=== PATIENT | female | born 1995 | race African-American/Black ===

== ENCOUNTER 2017-06-03 20:36 | Inpatient (IN) | payer OTHER ==
[2017-06-03 22:11] LABS: Absolute Lymphocytes (CBC) 0.9 K/uL (0.7-4.9); Absolute Monocytes 0.3 K/uL (0.1-1.3); Absolute Neutrophil 6.4 K/uL (1.8-8.0); Basophils % 0.4 % (0-1.3); Eosinophils % 0.4 % (0-4.4); Hematocrit 41.1 % (36.0-45.0); Lymphocytes % 11.4 % (15.3-44.8); MCH 28.4 pg (27.0-35.0); MCV 84.5 fL (80-100); MPV 9.3 fL (7.6-11.3); Monocytes % 4.3 % (3.3-12.3); RBC Red Blood Cell Count 4.86 M/uL (3.86-4.86)
[2017-06-03] MEDS ORDERED: MORPHINE 10 MG/ML VIAL ONE (22:12)
[2017-06-03] MEDS ORDERED: ONDANSETRON 4 MG/2 ML VIAL ONE (22:13)
[2017-06-03] MEDS ORDERED: NA CHLORIDE 0.9% 1,000 ML ONE (22:13)
[2017-06-03 22:21] LABS: Bicarbonate 23 mEq/L (21-31); Glucose Level 113 mg/dL (65-120); Lipase 25 U/L (22-51); Potassium 3.4 mEq/L (3.6-5.0); Sodium Level 139 mEq/L (135-145)
[2017-06-03 22:28] LABS: Urine Blood TRACE (NEG); Urine Glucose NEGATIVE (NEG); Urine Protein 1+ (NEG); Urine Specific Gravity 1.025 (1.005-1.030)
[2017-06-03 22:32] LABS: ALT/SGPT 21 IU/L (10-60); AST/SGOT 29 IU/L (10-42); Albumin 4.5 g/dL (3.2-5.5); Alkaline Phosphatase 79 IU/L (42-121); BUN Blood Urea Nitrogen 14 mg/dL (6-20); Bilirubin Direct < 0.1 mg/dL (0-0.2); Bilirubin Total 0.5 mg/dL (0.3-1.2); Protein, Total 8.2 g/dL (6.0-8.3)
[2017-06-03 23:07] LABS: Urine Specific Gravity 1.025 (1.005-1.030)
--- NOTE | 2017-06-04 00:08 | EDPHYS ---
Physician Documentation [facility] Name: Winsome Navarro Age: 21 yrs Sex: Female : 1995 Arrival Date: 06/03/2017 Time: 20:37 Bed 23 Private MD: ED Physician Sukhwinder Hopper HPI: 06/03 22:04 This 21 yrs old Black Female presents to ER via Wheelchair with complaints of Lower Abd jr8 Pain-L. 22:04 The patient presents with abdominal pain in the left lower quadrant. Onset: The jr8 symptoms/episode began/occurred acutely, today. The symptoms do not radiate. Associated signs and symptoms: Pertinent positives: nausea and vomiting. The symptoms are described as sharp, shooting. Modifying factors: The symptoms are alleviated by nothing, the symptoms are aggravated by nothing. Severity of pain: At its worst the pain was moderate in the emergency department the pain is unchanged. The patient has not experienced similar symptoms in the past. The patient has not recently seen a physician. 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 - Social history:: Smoking status: Patient/guardian denies using tobacco. ROS: 22:04 Eyes: Negative for injury, pain, redness, and discharge, ENT: Negative for injury, jr8 pain, and discharge, Neck: Negative for injury, pain, and swelling, Cardiovascular: Negative for chest pain, palpitations, and edema, Respiratory: Negative for shortness of breath, cough, wheezing, and pleuritic chest pain, Back: Negative for injury and pain, MS/Extremity: Negative for injury and deformity, Skin: Negative for injury, rash, and discoloration, Neuro: Negative for headache, weakness, numbness, tingling, and seizure. 22:04 Abdomen/GI: Positive for abdominal pain, nausea and vomiting, Negative for diarrhea, constipation, abdominal cramps, abdominal distension, anorexia, dysphagia, hematemesis, black/tarry stool, rectal pain, rectal bleeding, bowel incontinence, flatulence. Exam: 22:04 Eyes: Pupils equal round and reactive to light, extra-ocular motions intact. Lids and jr8 lashes normal. Conjunctiva and sclera are non-icteric and not injected. Cornea within normal limits. Periorbital areas with no swelling, redness, or edema. ENT: Nares patent. No nasal discharge, no septal abnormalities noted. Tympanic membranes are normal and external auditory canals are clear. Oropharynx with no redness, swelling, or masses, exudates, or evidence of obstruction, uvula midline. Mucous membranes moist. Neck: Trachea midline, no thyromegaly or masses palpated, and no cervical lymphadenopathy. Supple, full range of motion without nuchal rigidity, or vertebral point tenderness. No Meningismus. Cardiovascular: Regular rate and rhythm with a normal S1 and S2. No gallops, murmurs, or rubs. Normal PMI, no JVD. No pulse deficits. Respiratory: Lungs have equal breath sounds bilaterally, clear to auscultation and percussion. No rales, rhonchi or wheezes noted. No increased work of breathing, no retractions or nasal flaring. Back: No spinal tenderness. No costovertebral tenderness. Full range of motion. Skin: Warm, dry with normal turgor. Normal color with no rashes, no lesions, and no evidence of cellulitis. MS/ Extremity: Pulses equal, no cyanosis. Neurovascular intact. Full, normal range of motion. Neuro: Awake and alert, GCS 15, oriented to person, place, time, and situation. Cranial nerves II-XII grossly intact. Motor strength 5/5 in all extremities. Sensory grossly intact. Cerebellar exam normal. Normal gait. 22:04 Abdomen/GI: Inspection: abdomen appears normal, Bowel sounds: active, all quadrants, Palpation: soft, in all quadrants, moderate abdominal tenderness, in the left lower quadrant, mass, is not appreciated, rebound tenderness, is not appreciated, voluntary guarding, is not appreciated, involuntary guarding, is not appreciated, no appreciated organomegaly, Indicators: McBurney's point is not tender, Zavala's sign is negative, Rovsing's sign is negative, Liver: no appreciated palpable abnormalities, tenderness, is not appreciated. Vital Signs: 21:01 BP 109 / 75; Pulse 106; Resp 18; Temp 97.4; Pulse Ox 100% on R/A; Weight 98.88 kg; aj Height 5 ft. 8 in. (172.72 cm); Pain 8/10; 21:30 BP 104 / 64; Pulse 66; Resp 17; Pulse Ox 99% on R/A; rk2 23:15 BP 107 / 69; Pulse 68; Resp 16; Pulse Ox 98% on R/A; rk2 06/04 01:00 BP 109 / 71; Pulse 69; Resp 16; Pulse Ox 98% on R/A; rk2 06/03 21:01 Body Mass Index 33.15 (98.88 kg, 172.72 cm) aj MDM: 06/03 21:22 Patient medically screened. jr8 06/04 00:04 Data reviewed: vital signs, nurses notes, lab test result(s), radiologic studies, CT jr8 scan, and as a result, I will admit patient. Data interpreted: Pulse oximetry: on room air is 98 %. Interpretation: normal. Counseling: I had a detailed discussion with the patient and/or guardian regarding: the historical points, exam findings, and any diagnostic results supporting the discharge/admit diagnosis, lab results, radiology results, the need for further work-up and treatment in the hospital. Physician consultation: Brooklynn Middleton MD was called at 00:05, was contacted at 00:05, regarding admission, to the medical/surgical unit. consult, patient's condition, and will see patient. ED course: Patient has colitis on CT with fecoloma. Possible etiology of stercoral colitis vs infectious or inflammatory pathology. Need for admission and IV antibiotic therapy to insure if it is stercoral colitis that it does not progress and get worse. 06/03 21:52 Order name: Basic Metabolic Panel; Complete Time: 22:45 jr8 06/03 21:52 Order name: CBC with Diff; Complete Time: 22:24 jr8 06/03 21:52 Order name: Creatinine for Radiology; Complete Time: 22:45 jr8 06/03 21:52 Order name: Hepatic Function; Complete Time: 22:45 jr8 06/03 21:52 Order name: Lipase; Complete Time: 22:45 jr8 06/03 22:21 Order name: Urine Dipstick--Ancillary (enter results); Complete Time: 22:45 rg2 06/03 22:45 Order name: CT Abd/Pelvis - W/Contrast jr8 06/03 22:56 Order name: Urine --Ancillary (enter results); Complete Time: 23:10 [facility] 06/03 21:52 Order name: Urine Test (obtain specimen); Complete Time: 23:08 8 06/03 21:52 Order name: IV Saline Lock; Complete Time: 22:21 jr8 06/03 21:52 Order name: Labs collected and sent; Complete Time: 22:21 8 06/03 21:52 Order name: Urine Dipstick-Ancillary (obtain specimen); Complete Time: 22: Administered Medications: 06/03 22:21 Drug: morphine 4 mg Route: IVP; Site: left antecubital; 2 06/04 01:00 Follow up: Response: No adverse reaction 2 06/03 22:21 Drug: Zofran 4 mg Route: IVP; Site: left antecubital; rk2 06/04 00:59 Follow up: Response: No adverse reaction 2 06/03 22:21 Drug: NS 0.9% 1000 ml Route: IV; Rate: 1000 ml; Site: left antecubital; rk2 23:30 Follow up: Response: No adverse reaction; IV Status: Completed infusion rk2 06/04 00:13 Drug: morphine 4 mg Route: IVP; Site: left antecubital; rk2 00:59 Follow up: Response: No adverse reaction rk2 00:49 Drug: Flagyl 500 mg Volume: 100 ml; Route: IVPB; Rate: 200 ml/hr; Infused Over: 30 rk2 mins; Site: left antecubital; 01:21 Follow up: Response: No adverse reaction; IV Status: Completed infusion rk2 00:50 Drug: Magnesium Citrate Liquid 300 ml Route: PO; rk2 01:22 Follow up: Response: No adverse reaction rk2 01:21 Drug: Cipro 400 mg Volume: 200 ml; Route: IVPB; Infused Over: 60 mins; Site: left rk2 antecubital; 01:22 Follow up: Response: No adverse reaction; IV Status: Infusion continued upon admission 2 Disposition: 01:42 Co-signature as Attending Physician, Sukhwinder Hopper MD. pkl Disposition: 06/04/17 00:07 Hospitalization ordered by Katia Barraza for Inpatient Admission. Preliminary diagnosis is Left sided colitis with other complication. - Bed requested for Telemetry/MedSurg (Inpatient). - Status is Inpatient Admission. jr8 - Condition is Stable. - Problem is new. - Symptoms have improved. UTI on Admission? No Signatures: Dispatcher [employer] Oneyda Schaffer, RN RN Sukhwinder Amos MD MD pkl Roszak, Josh, PA PA jr8 America Stearns, RN RN cg Judy Wynne RN RN rk2
--- NOTE | 2017-06-04 00:08 | ER ---
Nurse's Notes [facility] Name: Winsome Navarro Age: 21 yrs Sex: Female : 1995 Arrival Date: 06/03/2017 Time: 20:37 Bed 23 Private MD: Diagnosis: Left sided colitis with other complication Presentation: 06/03 20:59 Presenting complaint: Patient states: LLQ abdominal pain. Patient states "it feels like aj I'm constipated." Patient reports tenderness with palation. Transition of care: patient was not received from another setting of care. Onset of symptoms was June 03, 2017. Initial Sepsis Screen: Does the patient meet any 2 criteria? No. Patient's initial sepsis screen is negative. Does the patient have a suspected source of infection? No. Patient's initial sepsis screen is negative. Care prior to arrival: None. 20:59 Method Of Arrival: Wheelchair 20:59 Acuity: SUZY 3 aj Triage Assessment: 21:01 General: Appears in no apparent distress. uncomfortable, Behavior is calm, cooperative, aj appropriate for age. Pain: Complains of pain in left lower quadrant Pain currently is 8 out of 10 on a pain scale. Neuro: Level of Consciousness is awake, alert, obeys commands, Oriented to person, place, time, situation, Appropriate for age. Respiratory: Airway is patent Respiratory effort is even, unlabored, Respiratory pattern is regular, symmetrical. GI: Reports lower abdominal pain, nausea. Derm: Skin is intact, is healthy with good turgor, Skin is pink, warm \\T\\ dry. normal. 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 - Social history:: Smoking status: Patient/guardian denies using tobacco. Screenin:32 Abuse screen: Denies threats or abuse. Nutritional screening: No deficits noted. rk2 Tuberculosis screening: No symptoms or risk factors identified. Fall Risk None identified. Assessment: 21:33 General: Appears uncomfortable, well groomed, well developed, well nourished, Behavior rk2 is calm, cooperative, appropriate for age. Pain: Complains of pain in abdomen and left lower quadrant. Neuro: Level of Consciousness is alert, Oriented to person, place, time, situation. Respiratory: Airway is patent Respiratory effort is even, unlabored, Respiratory pattern is regular, symmetrical. GI: Abdomen is flat, Bowel sounds present X 4 quads. Abd is soft X 4 quads Abdomen is tender to palpation in right lower quadrant and left lower quadrant. Derm: Skin is pink, warm \\T\\ dry. 22:30 Reassessment: Pt. resting in bed, appears to be more comfortable... Family \\T\\ bedside. rk2 Iv fluids infusing. Waiting results. No needs \\T\\ this time. 23:09 Reassessment: Pt. returned from CT scan, resting in room \\T\\ this time... family \\T\\ rk 2 bedside. Pt. appears to be in no obvious distress. Iv fluids infusing. No needs \\T\\ this time. Vital Signs: 21:01 BP 109 / 75; Pulse 106; Resp 18; Temp 97.4; Pulse Ox 100% on R/A; Weight 98.88 kg; aj Height 5 ft. 8 in. (172.72 cm); Pain 8/10; 21:30 BP 104 / 64; Pulse 66; Resp 17; Pulse Ox 99% on R/A; rk2 23:15 BP 107 / 69; Pulse 68; Resp 16; Pulse Ox 98% on R/A; rk2 06/04 01:00 BP 109 / 71; Pulse 69; Resp 16; Pulse Ox 98% on R/A; rk2 06/03 21:01 Body Mass Index 33.15 (98.88 kg, 172.72 cm) ED Course: 06/03 20:37 Patient arrived in ED. ds1 21:00 Triage completed. aj 21:01 Arm band placed on left wrist. Patient placed in an exam room. aj 21:03 Judy Wynne, LILY is Primary Nurse. rk2 21:22 Rainer Bill PA is PHCP. jr8 21:22 Sukhwinder Hopper MD is Attending Physician. jr8 21:32 Patient has correct armband on for positive identification. Bed in low position. Call rk2 light in reach. 23:07 CT completed. Patient moved to CT via wheelchair. Patient moved back from CT. cw1 23:07 CT Abd/Pelvis - W/Contrast In Process Unspecified. EDMS 06/04 00:07 Brooklynn Middleton MD is Hospitalizing Provider. jr8 01:39 No provider procedures requiring assistance completed. Patient admitted, IV remains in rk2 place. 01:57 Primary Nurse role handed off by Judy Wnyne RN jr8 01:57 Hospitalizing Provider role handed off by Brooklynn Middleton MD jr8 01:57 Katia Barraza MD is Hospitalizing Provider. jr8 Administered Medications: 06/03 22:21 Drug: morphine 4 mg Route: IVP; Site: left antecubital; rk2 06/04 01:00 Follow up: Response: No adverse reaction rk2 06/03 22:21 Drug: Zofran 4 mg Route: IVP; Site: left antecubital; rk2 06/04 00:59 Follow up: Response: No adverse reaction rk2 06/03 22:21 Drug: NS 0.9% 1000 ml Route: IV; Rate: 1000 ml; Site: left antecubital; rk2 23:30 Follow up: Response: No adverse reaction; IV Status: Completed infusion rk2 06/04 00:13 Drug: morphine 4 mg Route: IVP; Site: left antecubital; rk2 00:59 Follow up: Response: No adverse reaction rk2 00:49 Drug: Flagyl 500 mg Volume: 100 ml; Route: IVPB; Rate: 200 ml/hr; Infused Over: 30 rk2 mins; Site: left antecubital; 01:21 Follow up: Response: No adverse reaction; IV Status: Completed infusion rk2 00:50 Drug: Magnesium Citrate Liquid 300 ml Route: PO; rk2 01:22 Follow up: Response: No adverse reaction rk2 01:21 Drug: Cipro 400 mg Volume: 200 ml; Route: IVPB; Infused Over: 60 mins; Site: left rk2 antecubital; 01:22 Follow up: Response: No adverse reaction; IV Status: Infusion continued upon admission rk2 Outcome: 00:07 Decision to Hospitalize by Provider. jr8 01:39 Admitted to Med/surg accompanied by tech, via wheelchair. rk2 01:39 Condition: good 01:39 Instructed on the need for admit. 01:40 Patient left the ED. rk2 01:58 Patient left the ED. jr8 Signatures: Dispatcher [employer] Oneyda Schaffer, RN RN Namrata Martino ds1 Monika Metzger cw1 Rainer Bill PA PA jr8 Judy Wynne RN RN rk2
[2017-06-04] MEDS ORDERED: MORPHINE 2 MG/ML SYR IV PRN (00:31)
[2017-06-04] MEDS ORDERED: ACETAMINOPHEN 500 MG TAB PO PRN (00:31)
[2017-06-04] MEDS ORDERED: CIPROFLOXACIN 400mg IV 400 MG/200 ML BAG IV ONE (00:43)
[2017-06-04] MEDS ORDERED: MAGNESIUM CITRATE 300 ML BOT ONE (00:43)
[2017-06-04] MEDS ORDERED: NA CHLORIDE 0.9% 1,000 ML IV SCH (01:00)
[2017-06-04] MEDS: ONDANSETRON 4 MG/2 ML VIAL IV PRN ×2 (01:44→22:32)
[2017-06-04 02:40] VITALS: BMI 29.9
[2017-06-04] MEDS ORDERED: Morphine 2 MG/2 ML SYR ONE (04:24)
[2017-06-04] MEDS: Morphine 2 MG/2 ML SYR IV PRN (04:35)
[2017-06-04] MEDS: METRONIDAZOLE 500mg IVPB 500 MG/100 ML BAG IV SCH ×3 (05:08→17:00)
[2017-06-04 06:14] LABS: Absolute Lymphocytes (CBC) 1.1 K/uL (0.7-4.9); Absolute Monocytes 0.5 K/uL (0.1-1.3); Absolute Neutrophil 4.8 K/uL (1.8-8.0); Basophils % 0.3 % (0-1.3); Eosinophils % 0.3 % (0-4.4); Hematocrit 39.2 % (36.0-45.0); Lymphocytes % 17.4 % (15.3-44.8); MCH 28.5 pg (27.0-35.0); MCV 86.7 fL (80-100); MPV 9.7 fL (7.6-11.3); Monocytes % 7.8 % (3.3-12.3); RBC Red Blood Cell Count 4.52 M/uL (3.86-4.86)
[2017-06-04 06:40] LABS: ALT/SGPT 17 IU/L (10-60); AST/SGOT 24 IU/L (10-42); Albumin 3.7 g/dL (3.2-5.5); Alkaline Phosphatase 68 IU/L (42-121); BUN Blood Urea Nitrogen 10 mg/dL (6-20); Bicarbonate 24 mEq/L (21-31); Bilirubin Total 0.6 mg/dL (0.3-1.2); Glucose Level 107 mg/dL (65-120); Potassium 3.9 mEq/L (3.6-5.0); Protein, Total 6.5 g/dL (6.0-8.3); Sodium Level 138 mEq/L (135-145)
--- NOTE | 2017-06-04 06:41 | RAD REPORT ---
EXAM DESCRIPTION: CT - Abdomen Pelvis W Contrast - 06/04/2017 6:08 am CLINICAL HISTORY: Left lower quadrant abdominal pain. A preliminary written report was provided at the time of the study, and the report was reviewed prio r to final dictation. COMPARISON: None. TECHNIQUE: Biphasic, helical CT imaging of the abdomen and pelvis was performed following 100 ml non -ionic IV contrast. Oral contrast was given. All CT scans are performed using dose optimization technique as appropriate and may include automated exposure control or mA/KV adjustment according to patient size. FINDINGS: No suspicious findings in the lung bases. The liver, spleen, and pancreas show no suspicious findings. Gallbladder and biliary tree are also wi thout suspicious finding. Symmetric renal function is seen with no hydronephrosis or suspicious renal mass. No pyelonephritis o r acute renal parenchymal process. Contracted urinary bladder shows no suspicious finding. Phlebolith s are present. Uterus and ovaries also without suspicious finding. No gastric dilatation or gastric wall thickening. A few small mesenteric lymph nodes are present. No acute small bowel finding. No evidence of appendicitis. From cecum to mid transverse colon no acute c olon process seen. Hernandez of the left side colon and descending colon are decompressed and appear mild ly prominent. Patient could have a minimal colitis through this region. Wall thickening is more evide nt in the sigmoid colon. There is a 5-6 centimeter sized fecaloma in the proximal sigmoid colon with an abrupt transition to decompressed distal sigmoid colon and rectum. Trace amount of stranding seen in the adjacent fat. No free air, free fluid, pneumatosis or other inflammatory stranding. No hernia, mass or bulky lymph adenopathy. No adrenal abnormality. No suspicious bony findings. IMPRESSION: Suspected stercoral colitis with 6 cm fecaloma in the proximal sigmoid colon. More dista lly rectum and distal sigmoid colon are decompressed. No obstruction, free air or surgically emergent finding.
[2017-06-04] MEDS: ENOXAPARIN 40 MG/0.4 ML SQ SCH (09:00)
[2017-06-04] MEDS ORDERED: CEFTRIAXONE 1 GM/NS 50 ML 1 GM/50 ML BAG IV SCH (09:00)
[2017-06-04] MEDS: D5 0.9 NS 1,000 ML IV SCH (09:27)
[2017-06-04] MEDS: CEFTRIAXONE/SWI 1gm 1 GM/10 ML SYR IV SCH (09:31)
[2017-06-05] MEDS: D5 0.9 NS 1,000 ML IV SCH ×3 (01:15→23:24)
[2017-06-05] MEDS: METRONIDAZOLE 500mg IVPB 500 MG/100 ML BAG IV SCH ×5 (06:05→23:24)
--- NOTE | 2017-06-05 07:05 | HP ---
Date of Admission: 06/04/2017 Chief Complaint: Abdominal pain. History Of Present Illness: This is a 21-year-old female patient, who came into emergency room with left-sided abdominal pain that started yesterday afternoon, around 2:30 in the afternoon. The pain w as continuous and then as the day progressed pain got worse. She came into emergency room. After sh irasema was evaluated, she was admitted to the hospital. She denies any constipation problem. Says her us ual bowel habit is a bowel movement either every day or every other day, most of the time it is every other today, and denies having hard consistency of stool. Yesterday, she was sitting on the commode and was straining to have a bowel movement; normally she does not have to strain but yesterday ruthyi ng she was straining and she even tried to see if there was any impaction by putting her finger in th e rectum and she did not feel like there was any impaction, but at that time she did notice some brig ht red blood on the examining finger. There was no free bleeding per rectum. She came into the ER a fter that. She was admitted to the hospital after workup was done in the emergency room. This morni ng, she reported her abdominal pain is much better. No nausea, no vomiting. No fever or chills. No prior history of similar complaints. Allergies: ALLERGY TO AMOXICILLIN CAUSING RASH AND HIVES. Medications: Does not take any medications at home but has implanted control device in her arm for last few months. Her Title Supervisor is Dr. Puga. Review of Systems: GI: As mentioned above. All other systems reviewed and negative. Family History: Significant for hypertension and diabetes with mother; maternal grandmother, colon c ancer; maternal grandfather, hypertension and chronic kidney disease. Past Surgical History: Significant for and ACL repair of knee. Past Medical History: Not pertinent. Social History: Negative for smoking or alcohol use. Physical Examination: Vital Signs: Height 5 feet 8 inches. Weight 196 pounds. Temperature 97.2, pulse 76, respiratory ra te 16, blood pressure 97/55. General: Awake, alert, oriented, not in distress. HEENT: Head atraumatic, normocephalic. Conjunctivae nonerythematous. Sclerae white. Mouth, no thr ush or edema noted. Ears/Nose, no mass, lesion, discharge noted. Neck: Supple. No JVD, lymph nodes, bruit, thyromegaly noted. Lungs: Bilateral good equal air entry. Clear to auscultation. No rhonchi. No rales. Heart: Normal heart sounds, no murmur or gallop. Abdomen: Mild tenderness in left lower quadrant. No rebound tenderness. No guarding. No rigidity. No distention. No hepatosplenomegaly. No bruit. Bowel sounds normoactive. Extremities: No leg edema. No calf tenderness. Skin: No rash, ulcer, cellulitis. Lymphatics: No lymph node enlargement in neck, supraclavicular, infraclavicular region. Neuro: No focal neurological deficit. Chest: Unremarkable. External Genitalia: Deferred. Rectal: Deferred. Laboratory Data: White count yesterday 7.7, hemoglobin 13.8, platelets 219. This morning, white cou nt 6.5, hemoglobin 12.9, platelets 206. Yesterday, sodium 139, potassium 3.4, chloride 105, bicarb 2 3, BUN 14, creatinine 0.81, glucose 113. Liver function tests unremarkable. Lipase 25. This mornin g, chemistry profile normal including potassium normal and TSH 0.9. Urinalysis; negative except 1+ p rotein. Urine test negative. CAT scan of abdomen and pelvis done in the emergency room wi th contrast shows evidence of suspected stercoral colitis with 6 cm fecaloma in the proximal sigmoid colon. More distally, rectum and distal sigmoid colon are decompressed. No obstruction, free air, o r surgically emergent finding. Impression: 1.Stercoral colitis. 2.Constipation. 3.Hypokalemia. Plan: We will go ahead and admit the patient to hospital for further evaluation and management of th is problem. The patient is appropriate for inpatient and is expected to spend 2 midnights in the [facility]. Consult high rigger. We will start her on clear liquid diet. Continue IV fluid and I V antibiotics. The patient did report having one bowel movement last night. We will see how she boo s on her own today and if necessary starting tomorrow we will start her on some laxatives. Monitor h er with serial abdominal exam. So far, there are no signs of peritonitis. We did talk about using s tool softener/laxative upon discharge from the hospital. I will see her tomorrow for followup. Laura aguilar of plan of treatment discussed with her. Lovenox will be given for DVT prophylaxis. RAVI/MODL Voice ID: [id number]
[2017-06-05] MEDS: ENOXAPARIN 40 MG/0.4 ML SQ SCH (08:26)
[2017-06-05] MEDS: CEFTRIAXONE/SWI 1gm 1 GM/10 ML SYR IV SCH (08:26)
[2017-06-05] MEDS ORDERED: Ringers Lactate 1,000 ML IV ONE (12:33)
[2017-06-05] MEDS ORDERED: PROPOFOL 200 MG/20 ML VIAL IV ONE ×3 (13:32→13:33)
[2017-06-05] MEDS ORDERED: LIDOCAINE 1% MPF 5 ML VIAL ONE (13:33)
--- NOTE | 2017-06-05 14:24 | ENDO RPT ---
[address], [address] COLONOSCOPY PROCEDURE REPORT EXAM DATE: 06/05/2017 PATIENT NAME: Winsome Navarro MR #: [id number] BIRTHDATE: 1995 ATTENDING: Miguel Elmore Dr STATUS: inpatient - 7 LIP CUTTER: Irena Em, Ashtyn Anna RN, and Daiana Duffy RN INDICATIONS: The patient is a 21 yr old Female here for a colonoscopy due to abdominal pain and abnormal CT of abdomen PROCEDURE PERFORMED: Colonoscopy with removal of foreign body MEDICATIONS: Per Anesthesia. ESTIMATED BLOOD LOSS: None CONSENT: The patient understands the risks and benefits of the procedure and understands that these risks include, but are not limited to: sedation, allergic reaction, infection, perforation and/or bleeding. Alternative means of evaluation and treatment include, among others: physical exam, x-rays, and/or surgical intervention. The patient elects to proceed with this endoscopic procedure. DESCRIPTION OF PROCEDURE: During intra-op preparation period all mechanical medical equipment was checked for proper function. Hand hygiene and appropriate measures for infection prevention was taken. Procedure, possible complications, alternatives including, but not limited to possibility of bleeding, perforation, tear, infection, sepsis, need for surgery, need for blood transfusion, were explained to the patient. After the risks, benefits and alternatives of the procedure were thoroughly explained, Informed consent was verified, confirmed and timeout was successfully executed by the treatment team. The patient was placed in the left lateral position. A digital rectal exam was performed and revealed no abnormalities of the rectum. After appropriate level of anesthesia, the scope was passed. The [id number] ([id number]) endoscope was introduced through the anus and advanced to the terminal ileum which was intubated for a short distance. The quality of the prep was fair. The instrument was then slowly withdrawn as the colon was fully examined. Scope withdrawal time was 9 minutes. COLON FINDINGS: Foreign body / large fecalith impacted in appendix, removed with snare. Small internal hemorrhoids were found. No fecaloma / stool impaction in the sigmoid colon. Retroflexion was not performed. The scope was then completely withdrawn from the patient and the procedure terminated. ADVERSE EVENTS: There were no complications. IMPRESSIONS: 1. Foreign body / large fecalith 1.2 X 0.4 cm impacted in appendix, removed with snare 2. Small internal hemorrhoids 3. Intubation to terminal ileum 4. No fecaloma / stool impaction in the sigmoid colon RECOMMENDATIONS: fiber rich diet RECALL: Miguel Elmore Dr eSigned: Miguel Elmore Dr 06/05/2017 2:24 PM cc: Fredy Barraza CPT CODES: ICD9 CODES: PATIENT NAME: Winsome Navarro MR#: [id number]
[2017-06-05 14:35] VITALS: O2SAT 99
[2017-06-05] MEDS: ONDANSETRON 4 MG/2 ML VIAL IV PRN (15:17)
[2017-06-05] MEDS: Morphine 2 MG/2 ML SYR IV PRN (15:17)
[2017-06-05] MEDS: MINERAL OIL 30 ML UCUP PO SCH ×2 (16:29→21:37)
--- NOTE | 2017-06-06 00:03 | PN ---
Date of Progress Note: 06/05/2017 Subjective: The patient was seen this morning for followup. Her left-sided abdominal pain was emily r compared to yesterday. No nausea or vomiting. No rectal bleeding reported. She had only one johnny l movement, which was very small on the first night when she came in, but no bowel movement in last 2 4 hours. Objective: Vital Signs: Reviewed. HEENT: Examination unremarkable. Lungs: Clear to auscultation. Heart: Sounds normal. Abdomen: Soft. Bowel sounds normal. No guarding, rigidity, or distention. Presence of left-sided abdominal tenderness in left upper and left lower quadrants. No rebound tenderness. Extremities: No leg edema. Laboratory Data: Labs reviewed. Impression: 1.Colitis. 2.Constipation. Plan: We will continue current antibiotics, IV fluid. GI consultation was requested from Dr. Elmore . I did call him this morning and talked to him and explained all the details about the patient's cl inical presentation, CAT scan finding, etc. Dr. Elmore recommended for the patient to receive tap wa ter enema until clear and his plan is to do sigmoidoscopy today. Details were discussed with the ramon bhat's mother on the phone and she will communicate these details with the patient as when I talked t o the patient this morning, the patient wanted me to communicate with her mother to discuss the treatment plan. I will see her t omorrow for followup. RAVI/BHUMIKA Voice ID: [id number] Report ID: [id number]
[2017-06-06] MEDS: METRONIDAZOLE 500mg IVPB 500 MG/100 ML BAG IV SCH (06:13)
[2017-06-06] MEDS: CEFTRIAXONE/SWI 1gm 1 GM/10 ML SYR IV SCH (08:32)
[2017-06-06] MEDS: ENOXAPARIN 40 MG/0.4 ML SQ SCH (08:33)
[2017-06-06] MEDS: MINERAL OIL 30 ML UCUP PO SCH (08:33)
--- NOTE | 2017-06-06 11:09 | P.PN ---
Subjective Date of Service: 06/06/17 Chief Complaint: LLQ/suprapubic pain Subjective: Improving (States her pain has largely resolved. Tolerating po diet.) Review of Systems 10-point ROS is otherwise unremarkable Gastrointestinal: Abdominal Pain (LLQ pain largely resolved. ) Physical Examination - Vital Signs Temperature: 98.2 F Blood Pressure: 104/49 Pulse: 62 Respirations: 16 Pulse Ox (%): 97 - Physical Exam General: Alert, Oriented x3, Cooperative HEENT: Atraumatic, Normocephalic, PERRLA, EOMI Neck: Supple Respiratory: Normal air movement Cardiovascular: Normal pulses Gastrointestinal: Soft and benign, No rebound, No guarding, Tenderness (mild LLQ at most) Neurological: Normal speech, Normal strength at 5/5 x4 extr Assessment And Plan - Current Problems (Diagnosis) (1) Abnormal CT of the abdomen Current Visit: Yes Status: Acute (2) LLQ abdominal pain Current Visit: Yes Status: Acute (3) Constipation Current Visit: Yes Status: Acute (4) Fecaloma Current Visit: Yes Status: Acute (5) Colitis Onset Date: 06/04/17 Current Visit: Yes Status: Acute - Plan REC: 1) fiber supplements 2) Probiotics 3) Miralax 4) GI clinic f/u
[2017-06-06 12:17] VITALS: BP 112/68; TEMP 97.5
--- NOTE | 2017-06-07 05:49 | DS ---
Date of Discharge: 06/06/2017 The patient was seen this morning for followup. No new complaints or problems reported by the patien t this morning. She had colonoscopy done yesterday by Dr. Elmore. Physical Examination: HEENT: Unremarkable. Lungs: Clear to auscultation. Heart: Sounds normal. Abdomen: Soft. Bowel sounds normal. No guarding, rigidity, or distention. No rebound tenderness. Has very minimum tenderness in left lower quadrant. Otherwise rest of the abdomen is unremarkable. Bowel sounds normoactive. No distention. Extremities: No leg edema. Discharge Medications And Instructions: 1.Take cefuroxime 500 mg twice a day. 2.Metronidazole 500 mg 3 times a day as prescribed. 3.Take vvyd-yly-werdmlm Metamucil 2 capsules by mouth 2 times a day. 4.Drink about 50-60 ounces of water a day. 5.Take hhga-ydj-vjfoylv MiraLax 17 g powder mixed with 8 ounces of water 2 times a week as needed fo r constipation. 6.Eat high-fiber diet. 7.Follow up at my office in 2 weeks. 8[address]Follow [address] Elmore per his instruction. Hospital Course: A 21-year-old female patient, admitted to hospital with left-sided abdominal pain. Please see dictated H and P for more information. After the patient was evaluated in the emergency room, she was admitted to the hospital and further evaluation in the emergency room revealed presence of abnormality on the CAT scan and possibility of stercoral colitis and radiologist reported as pres ence of fecaloma in the sigmoid colon. She had a very small bowel movement after she was admitted to the hospital. After that, she did not have any further bowel movement. Her abdominal pain and tend erness improved with IV antibiotics, which was ceftriaxone and metronidazole. GI consultation was ob tained from Dr. Elmore and he did colonoscopy on the patient yesterday and he was able to remove larg e fecalith impacted in the appendix. Her colonoscopy also revealed some hemorrhoids. After colonosc opy, she was started on a high-fiber diet. She is tolerating that very well. This morning, she repo rted her abdominal pain is now on the left lower quadrant and is very minimum. Only time she has ezequiel n is upon palpation, otherwise she has no pain. She is feeling much better and Dr. Elmore has releas ed her to go home from his point of view. Medically, she is stable for discharge. I did talk to her about importance of controlling constipation with adequate amount of water, high-fiber diet, stool s oftener, and p.r.n. use of laxative. Final Diagnoses: 1.Stercoral colitis. 2.Constipation. 3.Hypokalemia. Special Discharge Instruction: The patient may return to work on Friday, which is 06/09/2017. Labs done during this hospitalization upon admission, white count 7.7, hemoglobin 13.8, platelets 219 . Repeat white count on 06/04, 6.5, hemoglobin 12.9, platelets 206. Her initial sodium 139, potassi um 3.4, chloride 105, bicarb 23, BUN 14, creatinine 0.81, glucose 113. Liver function test normal. TSH normal at 0.89. After correction, repeat potassium was 3.9. RAVI/MODL Voice ID: [id number] Report ID: [id number]
--- NOTE | 2017-06-13 01:35 | CON ---
Date of Consultation: 06/05/2017 Reason For Consultation: Stercoral colitis with impaction of stool in the sigmoid colon with abnorma l CAT scan with abdominal pain in the left lower quadrant. History Of Present Illness: The patient is a 21-year-old female with history of C-s ection and ACL repair. The patient presented to the hospital with left lower quadrant pain that star geovanna the day before admission, approximately 2:30 in the afternoon, became continuous worse, came to [facility]. CT scan revealed what appeared to be stercoral colitis with a 6-cm fecaloma and a large amount of stool impacted in the proximal sigmoid colon. The patient states she has not had signific ant bowel movement since hospital admission. She had hematochezia x1. She has nausea, vomiting, fev ers, and chills as well. She denies any syncope, fatigue, or melena. Past Surgical History: Significant for and ACL repair. Family History: Significant for hypertension and diabetes in mother. Maternal grandmother had colon cancer. Maternal grandfather with hypertension and chronic kidney disease. Social History: No tobacco. Lives at home with young child, I think, [id number]-gah daughter. She do es report occasional alcohol. Medications: Include Implanon control device in her arm for the last few months. Her gynecolo gist is Dr. Puga. Review of Systems: The patient has left lower quadrant pain and constipation, though she states she has a bowel movement everyday. Nausea, vomiting, fevers, chills, and sweats. Hematochezia x1, a small amount. No melen a, syncope, or fatigue. No hematemesis, coffee-grounds emesis, hemoptysis, hematuria, dysuria, polyd ipsia, lower extremity paresthesias, muscle aches, joint aches, backaches, depression, anxiety, seizu res, or syncope. Physical Examination: Vital Signs: The patient is 5 foot 8 inches, 196 pounds, and BMI of 29.9 kg/m2. She has a temperatu re of 97.5 degrees Fahrenheit, pulse 58, respirations 16, blood pressure 102/54, and O2 saturation 98 %. General: She is a well-nourished female lying in bed, in no acute distress. HEENT: Normocephalic, atraumatic. Anicteric. Pupils are equal, round, and reactive to light. Extr aocular movements are intact. Oropharynx is clear. Neck: Supple. No masses. Respirations: Clear to auscultation bilaterally. Cardiac: Regular rate and rhythm. No gallops or rubs. Gastrointestinal: Positive bowel sounds. Soft, nondistended. Pain in the left lower quadrant area. No peritoneal or Zavala signs. No rebound. Extremities: No clubbing, cyanosis, or edema; 2+ pulses. Neurologic: Alert and oriented x3. Grossly nonfocal; 5/5 motor strength. Sensation intact to light touch. Laboratory Data: CT abdomen and pelvis reveals suspected stercoral colitis with 6-cm fecaloma in the proximal sigmoid colon. More distal sigmoid colon and rectum are decompressed. Impression: Probable impaction with stercoral ulcer in the sigmoid colon with a 6-cm fecaloma noted on CT scan. The patient has had secondary left lower quadrant pain, maximum 9/10, [facility] The patient has had some bowel movements, but basically has not had a larger or signific ant amount of stool come out, she reports. She has nausea, vomiting, fevers, chills, sweats, and 1 e vent of hematochezia with a small amount. She thinks it may be just from her hemorrhoids. She denie s any melena, syncope, or fatigue. Recommendation: 1.Tap water enemas until clear. 2.Urgent flexible sigmoidoscopy/colonoscopy. 3.Keep the patient n.p.o. TITO/BHUMIKA Voice ID: [id number] Report ID: [id number]
== END 2017-06-06 12:26 | disposition home or self-care (01) | DRG 392 ==
LOC: ER 20:36 → ERHOLD 06-04 00:17 → 2ND 06-04 01:12 → OBSVTOIN 06-04 14:49
PROVIDERS: ADMIT Internal Medicine; ATTEND Internal Medicine
PROC: 0DCN8ZZ Extirpation of Matter from Sigmoid Colon, Via Natural or Artificial Opening Endoscopic (ICD-10-PCS; principal; 2017-06-05 13:15)
DX: K52.89 Other specified noninfective gastroenteritis and colitis (principal); K56.41 Fecal impaction; E87.6 Hypokalemia; K64.8 Other hemorrhoids
CPT/HCPCS: 36415; 74177; 80048; 80053; 80076; 81003; 81025; 83690; 84443; 85025; 96361; 96365; 96375; 99285; J0696; J0744; J1650; J2270; J2405; J7030; Q9967